=== PATIENT | male | born 1955 | race Caucasian/White ===

== ENCOUNTER 2016-07-04 14:35 | Emergency (ER) | payer OTHER ==
[~2016-07-04] VITALS: Ht 185.4 cm; Wt 92.0 kg
[2016-07-04 14:48] VITALS: TEMP 37.2; Ht 185.4 cm; Wt 92.0 kg
--- NOTE | 2016-07-04 15:14 | EMERGENCY ROOM VISIT NOTE ---
History Report prepared by Nelly: Olivia Jennings Under the Supervision of: Dr. Jose Alberto Arboleda M.D. 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 He currently rates his discomfort as a 4/10 in severity. The patient states that day he started with the nausea and additionally noticed increased gas. He states that yesterday he ate a lot of food. The patient states that this morning he woke up with a low-grade fever and chills, and states that his nausea worsened. He additionally notes left lower quadrant abdominal pain that he rates as a 3/10 in severity. The patient notes increased pain with movement or taking a step. He denies any urinary symptoms or diarrhea. The patient states that he spoke to a nurse at his PCP's office and was told to go to [facility] for his symptoms. He states that when he called [facility], he was instructed to come to the emergency department for further work up. The patient notes a history of testicular cancer, noting that he had his left testicle removed. He additionally notes a history of diverticulitis, noting that his symptoms subsided with Cipro and Flagyl. The patient denies any history of abdominal surgeries. He states that he works out often, and states that in the past he has had pain similar to diverticulitis that ended up being a pulled muscle. The patient states that he developed a cough on 04/30/16 and states that he has taken two different antibiotics and steroids for his symptoms, without complete relief. He states that the last time he was on antibiotics was 3-4 weeks ago. Source of History: patient Onset: five days ago Position: other (global) Symptom Intensity: 4/10 Quality: other (nausea) Timing: worsening Associated Symptoms: + abdominal pain, + chills, + fevers (low-grade), No diarrhea, No urinary symptoms Review of Systems See HPI for pertinent positives & negatives. A total of 10 systems reviewed and were otherwise negative. Past Medical & Surgical Medical Problems: (1) Diverticulitis (2) Testicular cancer Family History Cancer Social History Smoking Status: Current Some Day Smoker Alcohol Use: occasionally Marital Status: Housing Status: lives with significant other Occupation Status: employed Current/Historical Medications Scheduled Amoxicillin & Pot Clavulanate (Augmentin 875-125 mg), 875 MG PO BID Allergies Coded Allergies: ALLERGY2 (Verified Allergy, 06/20/02) Physical Exam Vital Signs Date Time Temp Pulse Resp B/P Pulse Ox O2 Delivery O2 Flow Rate FiO2 07/04/16 14:48 37.2 75 20 120/67 95 Room Air Physical Exam GENERAL: Patient is in no acute distress. HEENT: No acute trauma, normocephalic atraumatic, mucous membranes moist, no nasal congestion, no scleral icterus. NECK: No stridor, no adenopathy, no meningismus, trachea is midline. LUNGS: Clear to auscultation bilaterally, no wheeze, no rhonchi, breath sounds equal. HEART: Without murmurs gallops or rubs, regular rate and rhythm. ABDOMEN: Tender primarily in the left lower quadrant and left lateral abdomen. Soft, bowel sounds positive, no hernias, no peritonitis. EXTREMITIES: No cyanosis or edema, full range of motion of all the joints without pain or difficulty, no signs for acute trauma. NEUROLOGIC: Oriented x 3, no acute motor or sensory deficits, no focal weakness. SKIN: No rash, no jaundice, no diaphoresis. Medical Decision & Procedures ED Course 1503: The patient was evaluated in room C11B. A complete history and physical exam was performed. 1515: Ordered Augmentin Tab 875 mg PO. Medical Decision The patient is a 60 year old male who presents to the ED with complaints of nausea. Differential diagnoses considered include diverticulitis, hernia, musculoskeletal pain, UTI, appendicitis, pancreatitis, biliary colic, pneumonia. The patient presents with some nausea, chills, low-grade fever and left sided abdominal pain. He is currently not toxic in appearance. He is not currently febrile. His pain is minimal at a 3. On exam, he does appear to have findings consistent with acute diverticulitis. He has had diverticulitis in the past and has done well on oral antibiotics. The patient has opted for no laboratory testing and no imaging. He will start Augmentin and see how things unfold. If he is feeling better, he will just follow with his family doctor's office. If things are worsening or if he is not improving, he will report back to the ER for further testing. Impression Primary Impression: Left sided abdominal pain Scribe Attestation The scribe's documentation has been prepared under my direction and personally reviewed by me in its entirety. I confirm that the note above accurately reflects all work, treatment, procedures, and medical decision making performed by me. Departure Information Dispostion Home / Self-Care Prescriptions Amoxicillin & Pot Clavulanate (Augmentin 875-125 mg) 1 Tab Tab 875 MG PO BID for 10 Days, #20 TAB Prov: Jose Alberto Arboleda M.D. 07/04/16 Referrals Lucas Prakash M.D. (PCP) Forms HOME CARE DOCUMENTATION FORM, IMPORTANT VISIT INFORMATION Patient Instructions My [facility] Additional Instructions fluids rest tylenol for pain and aches and fever augmentin 2x per day for 10 days see your doctor this week return if worsening or not improving
[2016-07-04] MEDS ORDERED: AMOXICILLIN/CLAVULANATE TAB 875 MG TAB PO ONE (15:15)
[2016-07-04] MEDS ORDERED: AMOX875T PO (15:15)
[2016-07-04 15:39] VITALS: BP 120/76; PULSE 71; O2SAT 96
== END 2016-07-04 15:41 | disposition home or self-care (01) ==
LOC: C.EDB 14:39 → C.EDC 15:41
DX: R10.9 Unspecified abdominal pain (principal); K57.92 Diverticulitis of intestine, part unspecified, without perforation or abscess without bleeding; Z85.47 Personal history of malignant neoplasm of testis; Z80.9 Family history of malignant neoplasm, unspecified; F17.210 Nicotine dependence, cigarettes, uncomplicated